=== PATIENT | female | born 1930 | race Caucasian/White ===

== ENCOUNTER 2017-02-23 10:41 | Inpatient (IN) | payer OTHER, MEDICAID ==
[~2017-02-23] VITALS: Ht 149.9 cm; Wt 70.0 kg
[~2017-02-23 10:41] MED LIST: ACT30 PO; ADALAT CC30 MG PO; ASPIR 8181 MG PO; GLUCOTROL10 MG PO; METFORMIN ER500 M1 PO; MICARDIS40 MG PO; SIMVASTATIN40 M1 PO
[2017-02-23 11:28] LABS: BASOPHIL % 0.1 % (0-2); PLATELET COUNT 333 x10^3mcL (130-400)
[2017-02-23] MEDS ORDERED: DICLOFENAC SODI75 MG PO (11:36)
[2017-02-23] MEDS ORDERED: MICARDIS40 MG PO (11:36)
[2017-02-23] MEDS ORDERED: GOOD SENSE OMEP20 MG PO (11:36)
[2017-02-23] MEDS ORDERED: ACT30 PO (11:37)
[2017-02-23] MEDS ORDERED: FERROUS SULFAT325 M2 PO (11:37)
[2017-02-23] MEDS ORDERED: MECLIZINE HYDRO25 M1 PO (11:38)
[2017-02-23 11:43] LABS: CALCIUM 8.3 mg/dL (8.5-10.1); CARBON DIOXIDE 26.2 mmol/L (21-32); CHLORIDE SERUM 93 mmol/L (98-107); CREATININE SERUM 0.7 mg/dL (0.6-1.0); GLUCOSE SERUM 272 mg/dL (74-106); POTASSIUM SERUM 4.9 mmol/L (3.5-5.1); SODIUM SERUM 128 mmol/L (136-145)
[2017-02-23 11:44] LABS: RED CELL DISTRIBUTION WIDTH 16.2 % (11.5-14.5)
[2017-02-23 11:50] LABS: ALKALINE PHOSPHATASE 81 U/L (46-116); ALT/SGPT 40 U/L (14-59); AST/SGOT 69 U/L (15-37); BILIRUBIN TOTAL 0.4 mg/dL (0.20-1.00); LIPASE 179 IU/L (73-393); TOTAL PROTEIN, SERUM 7.5 g/dL (6.4-8.2)
[2017-02-23 15:37] VITALS: BP 139/91
[2017-02-23 15:40] LABS: MAGNESIUM 1.7 mg/dL (1.8-2.4)
[2017-02-23 15:43] LABS: CHOLESTEROL/HDL RATIO 7.9
[2017-02-23 15:50] LABS: FREE T4 1.72 ng/dL (0.76-1.46); FREE THYROXINE INDEX 3.1 ug/dL (1.4-4.5); T4(THYROXINE) 9.5 ug/dL (4.7-13.3)
[2017-02-23 15:54] LABS: T3 TOTAL 0.85 ng/mL
[2017-02-23 15:57] VITALS: BP 148/77
[2017-02-23 16:04] VITALS: Ht 149.9 cm; Wt 70.0 kg
[2017-02-23 16:11] LABS: PHOSPHOROUS 3.3 mg/dL (2.5-4.9)
[2017-02-23 17:35] VITALS: BP 157/86
[2017-02-23 19:30] LABS: UA SPECIFIC GRAVITY <=1.005 (1.005-1.035); microscopic required? YES; urine erythrocyte TRACE (NEGATIVE)
[2017-02-23 20:04] LABS: AMPHETAMINE QUAL UR NONE DETECTED (NEG <=1000)
[2017-02-23 21:43] VITALS: BP 139/73
[2017-02-24 05:44] VITALS: BP 126/69
[2017-02-24 07:05] LABS: BASOPHIL % 0.4 % (0-2); PLATELET COUNT 314 x10^3mcL (130-400)
[2017-02-24 07:24] LABS: RED CELL DISTRIBUTION WIDTH 16.1 % (11.5-14.5)
[2017-02-24 07:26] LABS: CALCIUM 7.9 mg/dL (8.5-10.1); CARBON DIOXIDE 23.1 mmol/L (21-32); CHLORIDE SERUM 101 mmol/L (98-107); CREATININE SERUM 0.5 mg/dL (0.6-1.0); GLUCOSE SERUM 166 mg/dL (74-106); MAGNESIUM 1.7 mg/dL (1.8-2.4); PHOSPHOROUS 3.4 mg/dL (2.5-4.9); POTASSIUM SERUM 3.9 mmol/L (3.5-5.1); SODIUM SERUM 132 mmol/L (136-145)
[2017-02-24 09:24] VITALS: BP 138/71
[2017-02-24 15:02] VITALS: BP 135/78
[2017-02-24 15:55] VITALS: BP 134/86
[2017-02-24 17:19] LABS: BASOPHIL % 0.4 % (0-2); PLATELET COUNT 316 x10^3mcL (130-400); RED CELL DISTRIBUTION WIDTH 16.8 % (11.5-14.5)
[2017-02-24 17:36] VITALS: BP 140/67
[2017-02-24 22:04] VITALS: BP 144/69
[2017-02-25 06:17] LABS: CARBON DIOXIDE 21.8 mmol/L (21-32); CHLORIDE SERUM 100 mmol/L (98-107); CREATININE SERUM 0.4 mg/dL (0.6-1.0); GLUCOSE SERUM 165 mg/dL (74-106); POTASSIUM SERUM 3.4 mmol/L (3.5-5.1); SODIUM SERUM 132 mmol/L (136-145)
[2017-02-25 06:46] LABS: BASOPHIL % 0.3 % (0-2); PLATELET COUNT 315 x10^3mcL (130-400)
[2017-02-25 06:51] LABS: RED CELL DISTRIBUTION WIDTH 16.3 % (11.5-14.5)
[2017-02-25 06:53] VITALS: BP 154/88
[2017-02-25 07:50] VITALS: BP 136/74
[2017-02-25 17:23] VITALS: BP 102/55
[2017-02-25 20:42] VITALS: BP 107/60
[2017-02-26 04:08] LABS: BASOPHIL % 0.4 % (0-2); PLATELET COUNT 336 x10^3mcL (130-400); RED CELL DISTRIBUTION WIDTH 16.8 % (11.5-14.5)
[2017-02-26 04:20] LABS: CALCIUM 8.4 mg/dL (8.5-10.1); CARBON DIOXIDE 23.8 mmol/L (21-32); CHLORIDE SERUM 101 mmol/L (98-107); CREATININE SERUM 0.6 mg/dL (0.6-1.0); GLUCOSE SERUM 215 mg/dL (74-106); POTASSIUM SERUM 3.5 mmol/L (3.5-5.1); SODIUM SERUM 134 mmol/L (136-145)
[2017-02-26 05:27] VITALS: BP 116/64
[2017-02-26 09:39] VITALS: BP 118/59
[2017-02-26 16:42] VITALS: BP 123/65
[2017-02-26 22:24] VITALS: BP 116/72
[2017-02-27 06:18] VITALS: BP 124/62
[2017-02-27 06:19] LABS: BASOPHIL % 0.1 % (0-2); PLATELET COUNT 327 x10^3mcL (130-400)
[2017-02-27 06:35] LABS: CALCIUM 8.3 mg/dL (8.5-10.1); CARBON DIOXIDE 19.9 mmol/L (21-32); CHLORIDE SERUM 102 mmol/L (98-107); CREATININE SERUM 0.6 mg/dL (0.6-1.0); GLUCOSE SERUM 216 mg/dL (74-106); MAGNESIUM 1.7 mg/dL (1.8-2.4); PHOSPHOROUS 3.7 mg/dL (2.5-4.9); POTASSIUM SERUM 3.7 mmol/L (3.5-5.1); SODIUM SERUM 134 mmol/L (136-145)
[2017-02-27 06:47] LABS: RED CELL DISTRIBUTION WIDTH 16.3 % (11.5-14.5)
[2017-02-27 09:41] VITALS: BP 114/63
[2017-02-27 09:54] VITALS: BP 97/57
[2017-02-27 13:17] VITALS: BP 123/57
[2017-02-27] MEDS ORDERED: XARELTO15 M1 PO ×2 (16:33→18:58)
[2017-02-27 17:48] VITALS: BP 102/42
[2017-02-27 18:04] VITALS: BP 102/42
== END 2017-02-27 19:56 | disposition home or self-care (01) | DRG 840 ==
LOC: ED 10:41 → DU 14:27
PROVIDERS: Emergency Medicine; Family Medicine; Internal Medicine Gastroenterology; ADMIT Family Medicine
PROC: 0DB68ZZ Excision of Stomach, Via Natural or Artificial Opening Endoscopic (ICD-10-PCS; principal; 2017-02-26 12:30)
PROC: 0DBL8ZX Excision of Transverse Colon, Via Natural or Artificial Opening Endoscopic, Diagnostic (ICD-10-PCS; 2017-02-26 12:30)
DX: C77.2 Secondary and unspecified malignant neoplasm of intra-abdominal lymph nodes (principal); I26.99 Other pulmonary embolism without acute cor pulmonale; E87.1 Hypo-osmolality and hyponatremia; E44.0 Moderate protein-calorie malnutrition; C18.4 Malignant neoplasm of transverse colon; C79.89 Secondary malignant neoplasm of other specified sites; D68.69 Other thrombophilia; E11.51 Type 2 diabetes mellitus with diabetic peripheral angiopathy without gangrene; E11.65 Type 2 diabetes mellitus with hyperglycemia; E78.5 Hyperlipidemia, unspecified; D64.9 Anemia, unspecified; E83.42 Hypomagnesemia; Z79.84 Long term (current) use of oral hypoglycemic drugs; I10 Essential (primary) hypertension; Z68.31 Body mass index [BMI] 31.0-31.9, adult
CPT/HCPCS: 36600; 43235; 45378; 80307; 82962; 83880; 84439; 94150; C9113; J1200; J1610; J1644; J1940; J2250; J2310; J3010; J3475; J3490; J7030; J7620; J7626; J8597; Q0092; Q9966; Q9967

== ENCOUNTER 2017-05-07 10:27 | Emergency (ER) | payer OTHER ==
[~2017-05-07 10:27] MED LIST changes: +DICLOFENAC SODI75 MG PO; +FERROUS SULFAT325 M2 PO; +GOOD SENSE OMEP20 MG PO; +MECLIZINE HYDRO25 M1 PO; +XARELTO15 M1 PO
[2017-05-07 10:46] VITALS: BP 132/76
== END 2017-05-07 12:50 | disposition home or self-care (01) ==
LOC: ED 10:27
DX: R21 Rash and other nonspecific skin eruption (principal); L29.9 Pruritus, unspecified; E78.5 Hyperlipidemia, unspecified; K21.9 Gastro-esophageal reflux disease without esophagitis; I10 Essential (primary) hypertension; E11.9 Type 2 diabetes mellitus without complications

== ENCOUNTER 2017-05-10 09:58 | Inpatient (IN) | payer OTHER ==
[~2017-05-10] VITALS: Ht 160 cm; Wt 66.2 kg
[2017-05-10 10:39] LABS: BASOPHIL % 0.3 % (0-2)
[2017-05-10 10:55] LABS: ALKALINE PHOSPHATASE 67 U/L (46-116); ALT/SGPT 17 U/L (14-59); AMYLASE 69 U/L (25-115); AST/SGOT 34 U/L (15-37); BILIRUBIN TOTAL 0.2 mg/dL (0.20-1.00); CALCIUM 8.3 mg/dL (8.5-10.1); CARBON DIOXIDE 25.9 mmol/L (21-32); CHLORIDE SERUM 94 mmol/L (98-107); CHOLESTEROL 147 mg/dL (<200); CREATININE SERUM 0.7 mg/dL (0.6-1.0); GLUCOSE SERUM 268 mg/dL (74-106); LIPASE 230 IU/L (73-393); T4(THYROXINE) 8.1 ug/dL (4.7-13.3); TOTAL PROTEIN, SERUM 7.5 g/dL (6.4-8.2)
[2017-05-10 10:57] LABS: ALBUMIN 2.7 g/dL (3.4-5.0); HDL CHOLESTEROL 20 mg/dL (40-60); POTASSIUM SERUM 5.8 mmol/L (3.5-5.1); SODIUM SERUM 124 mmol/L (136-145)
[2017-05-10 10:58] LABS: PLATELET COUNT 489 x10^3mcL (130-400); RED CELL DISTRIBUTION WIDTH 18.1 % (11.5-14.5)
[2017-05-10] MEDS ORDERED: XARELTO10 M1 PO (14:37)
[2017-05-10 15:35] LABS: T3 TOTAL 0.78 ng/mL
[2017-05-10 15:43] LABS: FREE T4 1.47 ng/dL (0.76-1.46); FREE THYROXINE INDEX 3.3 ug/dL (1.4-4.5); T4(THYROXINE) 9.4 ug/dL (4.7-13.3)
[2017-05-10 19:18] LABS: CALCIUM 8.2 mg/dL (8.5-10.1); CARBON DIOXIDE 23.9 mmol/L (21-32); CHLORIDE SERUM 93 mmol/L (98-107); GLUCOSE SERUM 387 mg/dL (74-106); POTASSIUM SERUM 5.1 mmol/L (3.5-5.1)
[2017-05-10 19:26] LABS: SODIUM SERUM 122 mmol/L (136-145)
[2017-05-10 19:41] VITALS: BP 134/77
[2017-05-10 22:36] VITALS: BP 116/63
[2017-05-11] MEDS ORDERED: TRAMADOL HCL50 MG PO (00:40)
[2017-05-11] MEDS ORDERED: OMEPRAZOLE20 M4 PO (00:41)
[2017-05-11 06:33] VITALS: BP 116/62
[2017-05-11 06:50] LABS: microscopic required? NO
[2017-05-11 07:13] LABS: BASOPHIL % 0 % (0-2); PLATELET COUNT 447 x10^3mcL (130-400); RED CELL DISTRIBUTION WIDTH 17.9 % (11.5-14.5)
[2017-05-11 07:27] LABS: CALCIUM 8.2 mg/dL (8.5-10.1); CARBON DIOXIDE 23.2 mmol/L (21-32); CHLORIDE SERUM 100 mmol/L (98-107); CREATININE SERUM 0.5 mg/dL (0.6-1.0); GLUCOSE SERUM 120 mg/dL (74-106); MAGNESIUM 1.7 mg/dL (1.8-2.4); PHOSPHOROUS 3.5 mg/dL (2.5-4.9); POTASSIUM SERUM 3.5 mmol/L (3.5-5.1); SODIUM SERUM 132 mmol/L (136-145)
[2017-05-11 07:57] LABS: UA SPECIFIC GRAVITY <=1.005 (1.005-1.035); urine erythrocyte NEGATIVE (NEGATIVE)
[2017-05-11 08:10] LABS: AMPHETAMINE QUAL UR NONE DETECTED (NEG <=1000)
[2017-05-11 09:55] VITALS: Ht 160 cm; Wt 66.2 kg
[2017-05-11 10:00] VITALS: BP 107/53
[2017-05-11 14:00] VITALS: BP 114/58
[2017-05-11 14:45] LABS: BASOPHIL % 0.1 % (0-2)
[2017-05-11 14:47] LABS: PLATELET COUNT 476 x10^3mcL (130-400); RED CELL DISTRIBUTION WIDTH 17.7 % (11.5-14.5)
[2017-05-11] MEDS ORDERED: DESONIDE15 GM TP (17:59)
[2017-05-11] MEDS ORDERED: KEN10 TOP (17:59)
[2017-05-11 18:00] VITALS: BP 114/58
== END 2017-05-11 19:58 | disposition home or self-care (01) | DRG 606 ==
LOC: ED 09:58 → DU 14:29
PROVIDERS: Emergency Medicine; ADMIT Family Medicine
DX: L21.9 Seborrheic dermatitis, unspecified (principal); E43 Unspecified severe protein-calorie malnutrition; E87.1 Hypo-osmolality and hyponatremia; E11.51 Type 2 diabetes mellitus with diabetic peripheral angiopathy without gangrene; E11.65 Type 2 diabetes mellitus with hyperglycemia; K21.9 Gastro-esophageal reflux disease without esophagitis; D64.9 Anemia, unspecified; E78.5 Hyperlipidemia, unspecified; Z79.82 Long term (current) use of aspirin; Z68.25 Body mass index [BMI] 25.0-25.9, adult; Z79.84 Long term (current) use of oral hypoglycemic drugs
CPT/HCPCS: 82962; 83880; 84439; J1200; J1750; J2916; J2930; J7030; J8597

== ENCOUNTER 2017-06-18 15:10 | Inpatient (IN) | payer OTHER ==
[~2017-06-18] VITALS: Ht 165.1 cm; Wt 66.7 kg
[~2017-06-18 15:10] MED LIST changes: +DESONIDE15 GM TP; +KEN10 TOP; +OMEPRAZOLE20 M4 PO; +TRAMADOL HCL50 MG PO; +XARELTO10 M1 PO
--- NOTE | 2017-06-18 15:17 | NUR ---
PT AWAKE, NO SIGNS OF RESP DISTRESS, +NAUSEA, NO ACTIVE VOMITING ON ARRIVAL. DAUGHTER STATES VOMITING X1 WEEK, NO BM X3 DAYS. [id number] ON ARRIVAL.
--- NOTE | 2017-06-18 18:09 | NUR ---
PT C/O NAUSEA X 1 WK, VOMITING SINCE THIS AM, AND CONSTIPATION X 3 DAYS. PT REPORTS TAKING ZOFRAN PRIOR TO ED ARRIVAL AND HAS VOMITED X 2 AFTER TAKING MED. PT ALSO REPORTS TAKING TRAMADOL FOR GENERALIZED PAIN. PT HX OF COLON CANCER AND STATES CURRENTLY NOT RECEIVING TX. PER SHABANA, CANCER IS TOO ADVANCE AT THIS POINT. PT ALERT AND AWAKE WITH EVEN AND UNLABORED BREATHING. NO DISTRESS NOTED AT THIS TIME. PT TALKING TO DAUGHTER AT BEDSIDE, WAITING TO BE SEEN BY ER MD.
--- NOTE | 2017-06-18 18:44 | NUR ---
PT ALERT AND AWAKE TALKING TO DAUGHTER AT BEDSIDE. NO DISTRESS NOTED AT THIS TIME.
--- NOTE | 2017-06-18 19:05 | NUR ---
DR HAWTHORNE AT BEDSIDE FOR MSE.
--- NOTE | 2017-06-18 19:12 | NUR ---
CHANGE OF SHIFT REPORT GIVEN TO JOSE PULIDO TO CONTINUE CARE.
[2017-06-18 19:41] LABS: BASOPHIL % 0.1 % (0-2)
[2017-06-18 19:42] LABS: PLATELET COUNT 474 x10^3mcL (130-400); RED CELL DISTRIBUTION WIDTH 19.8 % (11.5-14.5)
[2017-06-18 19:52] LABS: ALKALINE PHOSPHATASE 85 U/L (46-116); ALT/SGPT 24 U/L (14-59); AST/SGOT 48 U/L (15-37); BILIRUBIN TOTAL 0.3 mg/dL (0.20-1.00); CALCIUM 8.3 mg/dL (8.5-10.1); CARBON DIOXIDE 25.2 mmol/L (21-32); CHLORIDE SERUM 91 mmol/L (98-107); CREATININE SERUM 0.6 mg/dL (0.6-1.0); GLUCOSE SERUM 285 mg/dL (74-106); POTASSIUM SERUM 3.8 mmol/L (3.5-5.1); TOTAL PROTEIN, SERUM 7.2 g/dL (6.4-8.2)
[2017-06-18 19:54] LABS: ALBUMIN 2.4 g/dL (3.4-5.0)
[2017-06-18 19:55] LABS: SODIUM SERUM 122 mmol/L (136-145)
[2017-06-18 21:22] LABS: UA SPECIFIC GRAVITY <=1.005 (1.005-1.035); microscopic required? YES; urine erythrocyte NEGATIVE (NEGATIVE)
[2017-06-18 22:36] LABS: MAGNESIUM 1.8 mg/dL (1.8-2.4); PHOSPHOROUS 3.5 mg/dL (2.5-4.9)
[2017-06-18 22:41] LABS: CHOLESTEROL/HDL RATIO 10.2; T3 TOTAL 1.06 ng/mL
[2017-06-18 22:52] LABS: FREE T4 1.66 ng/dL (0.76-1.46); FREE THYROXINE INDEX 3.3 ug/dL (1.4-4.5); T4(THYROXINE) 9.2 ug/dL (4.7-13.3)
--- NOTE | 2017-06-19 00:01 | NUR ---
PT LAYING IN BED, IN POSITION OF COMFORT. RESPIRATIONS EVEN AND UNLABORED. NO ACUTE DISTRESS NOTED. BED IN LOW POSITION. CALL LIGHT WITHIN REACH.
--- NOTE | 2017-06-19 00:22 | NUR ---
REPORT GIVEN TO CRISTINA GARCIA.
[2017-06-19 01:17] VITALS: BP 153/75
--- NOTE | 2017-06-19 01:24 | NUR ---
RECEIVED PT FROM ED VIA KIMBERLY. ORIENTED PT TO ROOM AND SURRONDINGS. IV NOTED TO RAC PATENT AND INTACT. TELE 19 PLACED ON PT READING NSR. INSTRUCTED PT ON THE USE OF CALL LIGHT FOR ASSISTANCE. ENDORSED PT TO PRIMARY NURSE HENRY
--- NOTE | 2017-06-19 01:30 | NUR ---
RECEIVED PT FROM JOSE LEON. PT AOX4. TELE #19, NSR, HR 87. DENIES CP/PRESSURE. PULSES PRESENT, NO EDEMA NOTED. LUNG SOUNDS CLEAR, ON RA. DENIES SOB/DIFFICULTY BREATHING. BOWEL SOUNDS ACTIVE. VOIDS FREELY. GENERALIZED WEAKNESS. AMBULATORY WITH ASSISTANCE. USES BSC. SKIN INTACT. IV IN RAC, INTACT AND PATENT. BED IN LOWEST POSITION. CALL LIGHT WITHIN REACH. WILL CONTINUE TO MONITOR.
--- NOTE | 2017-06-19 02:58 | NUR ---
PT RESTING IN BED. RR EVEN AND UNLABORED. NO ACUTE DISTRESS NOTED. BED IN LOWEST POSITION. CALL LIGHT WITHIN REACH. WILL CONTINUE TO MONITOR.
[2017-06-19] MEDS ORDERED: HYDRALAZINE HCL25 MG PO (03:52)
[2017-06-19] MEDS ORDERED: OMEPRAZOLE40 M1 PO (03:53)
[2017-06-19] MEDS ORDERED: OMEPRAZOLE40 M1 (03:53)
[2017-06-19] MEDS ORDERED: LISINOPRIL40 MG PO (03:54)
[2017-06-19] MEDS ORDERED: FUROSEMIDE40 MG PO (03:54)
[2017-06-19] MEDS ORDERED: LIPI20 PO (03:54)
[2017-06-19] MEDS ORDERED: AMLODIPINE BESY10 M2 PO (03:55)
[2017-06-19] MEDS ORDERED: NEU300 PO (03:56)
--- NOTE | 2017-06-19 05:36 | NUR ---
PT BLOOD SUGAR 224, REFUSED INSULIN. PT STATED LAST TIME SHE WAS HERE SHE WAS GIVEN INSULIN AND HER BS DROPPED SO MUCH SHE ALMOST . DR. BLANCHARD NOTIFIED.
[2017-06-19 06:05] VITALS: BP 145/77
--- NOTE | 2017-06-19 06:41 | NUR ---
PT HAD MULTIPLE BM THROUGH THE NIGHT. STATES SHE THINKS ITS DUE TO THE MIRALAX HER HOME MAKES HER TAKE.
--- NOTE | 2017-06-19 06:42 | NUR ---
PT HAD LARGE BM AFTER SUPPOSITORY WAS INSERTED. PT REPORTED IT WAS SOFT AND LARGE.
[2017-06-19 06:45] LABS: CALCIUM 7.9 mg/dL (8.5-10.1); CARBON DIOXIDE 24.6 mmol/L (21-32); CHLORIDE SERUM 97 mmol/L (98-107); CREATININE SERUM 0.5 mg/dL (0.6-1.0); GLUCOSE SERUM 199 mg/dL (74-106); POTASSIUM SERUM 4.4 mmol/L (3.5-5.1); SODIUM SERUM 129 mmol/L (136-145)
--- NOTE | 2017-06-19 07:00 | NUR ---
PT IS LAYING IN BED WITH DAUGHTER BY HER SIDE. PT A/O X4 YAKUT SPK. TELE 19 NSR. HR 81. PT IS BREATHING EVEN AND UNLABORED. PT DENIES ANY ABD PAIN AT THIS TIME. IV TO RAC INFUSING AT 100 ML/HR. CALL LIGHT IN REACH. BED IN LOW POSITION. WILL CONTINUE PLAN OF CARE.
--- NOTE | 2017-06-19 07:22 | NUR ---
CANCELLATION REQUESTED FOR ECHOCARDIOGRAM
[2017-06-19 07:45] LABS: BASOPHIL % 0.2 % (0-2)
[2017-06-19 07:46] LABS: PLATELET COUNT 454 x10^3mcL (130-400); RED CELL DISTRIBUTION WIDTH 19.9 % (11.5-14.5)
[2017-06-19 10:00] VITALS: BP 124/58
--- NOTE | 2017-06-19 11:21 | NUR ---
Initial Nutrition Assessment Dx: Abd Pain, Colon CA PMHx: DM, HTN, gastric and colonic CA (02/2017) PSHx: None Labs: Na 129 L, BG 199 H, BUN 4 L, Cr 0.5 L, H/H 8.5/27 L; (06/18) ALB 2.4 L, AST 48 H, LDL 151 H, A1C 7.2 H Meds: D50, ferrous sulfate, humulin R, lactinex, morphine, oscal with vitamin D, Prilosec, NS IV, theragran, zofran Current Diet Order: NPO except meds (x1 day) (abd pain) Ht: 65", 5' 5". Wt: 147 lb, 67 kg. BMI: 24.5 kg/m2 (Normal) IBW: 125 lb, 57 kg. %IBW: 118%. UBW: Pt unable to recall. Wt Hx: (02/24/17) 155 lb, 70 kg; Pt reports weight at 141 lb, 64 kg on 06/11. Age: 86 Y/O F Food Allergies: None Skin: Intact. [place] 19. Edema: None GI: Abd slightly distended, tender. Active bowel sounds. Last BM 06/19. Large, soft BM. Pt found with abd pain secondary to constipation vs gastric and colonic CA per doctor's notes. Per Bed Huddle reports, concern for bowel obstruction, pt does not want surgery, pt is agreeable with hospice. Pt is Maltese-speaking only, daughter is Mongolian-speaking. Pot Fluxer assisted in translation. Noted visitor at bedside. Pt reported not remembering height accurately, appears to be 65", stated that no nausea/vomiting/diarrhea/constipation noted. Pt also stated that she does not eat meat, no fish, likes vegetables, cheese, milk, eggs. RD noted, no signs and symptoms of malnutrition noted. Spoke with Dr. Singh, stated pt has a partial obstruction, not advancing diet yet, waiting for a surgeon to talk to pt first. Problem with: N: None. V: None. D: None. C: None. Problems with: Chewing: None. Pt has dentures, but chewing well, no missing teeth. Swallowing: None. Recent Weight Change: -8 lb. % Weight Change: 5.2% weight loss within 3 months - Significant Vitamin/Supplement use: Ensure 1-2/day; No preference on flavor Diet at Home: Regular; 2 meals/day prepared by pt, likes to eat Russian breads like Bimbo and beans with rice Physical Activity: Walks Education: Noted pt was provided nutrition education on DM and low sodium diet on 02/24/17, accepted handouts and receptive to education. No further education indicated at this time. Noted pt agreeable with hospice. Estimated Nutritional Needs Based CBW 147 lb, 67 kg. Energy: 9779-1150 kcal/day (30-35 kcal/kg for Gastric and Colonic CA) Protein: 67-101 gm/day (1-1.5 gm/kg for Gastric and Colonic CA) Fluids: 2010 ml/day (30 ml/kg for Maintenance) or per doctor Nutrition Diagnosis 1. Increase nutritional needs related to increase metabolic demands as evidenced by pt with gastric and colonic CA 2. Unintentional weight loss related to gastric and colonic CA as evidenced by 5.2% weight loss within 3 months, considered significant Intervention 1. Consider advance diet per doctor if/when medically appropriate. 2. Consider advance as tolerated to CCHO-60 gm diet, Boost Glucose Control TID (750 kcal, 42 gm protein) if/when medically. Monitor/Evaluate Goal: NPO <5-7 days; Diet advancement Monitor: NPO status, diet advancement, labs, skin integrity, GI function, weights F/U in 2-3 days as HIGH risk (06/21-06/22)
--- NOTE | 2017-06-19 13:09 | NUR ---
PER DOCTORS ORDERS INSURTED ENEMA . PT TOLERATED WELL.
[2017-06-19 14:32] VITALS: Ht 165.1 cm; Wt 66.7 kg
[2017-06-19 14:38] VITALS: BP 123/60
[2017-06-19 18:25] VITALS: BP 136/72
--- NOTE | 2017-06-19 18:58 | NUR ---
PT IS RESTING IN BED TALKING ON THE CELL WITH A FAMILY MEMBER. PT DAUGHTER IS BY HER SIDE. PT WAS ABLE TO HAVE A BM PT STATED IT WAS VERY SMALL. PT BREATHING EVEN AND UNLABORED.IV TO RAC AT 100ML/HR. INFUSING WELL. NO SWELLING OR REDNESS NOTED. DENIES ANY ABD PAIN AT THIS TIME. CALL LIGHT IN REACH. BED IN LOW POSITION. WILL ENDORSE PT TO INCOMING NURSE.
--- NOTE | 2017-06-19 19:45 | NUR ---
RECEIVED PT FROM PREVIOUS SHIFT. PT A/OX4. DENIES PAIN. DENIES SOB ON RA. IV PATENT AND INFUSING WELL WITH NO S/S OF INFILTRATION. FAMILY AT BEDSIDE. CALL LIGHT WITHIN REACH, BED IN LOW POSITION. WILL CONTINUE TO MONITOR.
[2017-06-19 21:24] VITALS: BP 145/84
--- NOTE | 2017-06-20 00:15 | NUR ---
PT RESTING AT THIS TIME IN NO ACUTE DISTRESS. RR EVEN AND UNLABORED. IV PATENT AND INFUSING WELL WITH NO S/S OF INFILTRATION. WILL CONTINUE TO MONITOR.
[2017-06-20 05:27] VITALS: BP 126/86
--- NOTE | 2017-06-20 08:00 | NUR ---
AAO TIMES 4. DTR AT BEDSIDE, SUPPORTIVE AND CARING. TELE # 19 SR. VS'S STABLE. NO SOB. BS'S ACTIVE TIMES 4. HUTCHISON MODERATE STRENGTH. USING BSC. IV SITE CDI. COOPERATIVE. MEDICAL ROUNDS OCCURED AT [address] FRITZ AND THE MEDICINE TEAM. THE PLAN TODAY IS TO HAVE A HOSPICE EVAL AND WE WILL SEE WHAT HOSPICE SAYS.
[2017-06-20 10:27] VITALS: BP 131/71
[2017-06-20] MEDS ORDERED: SENNA8.6 M2 PO (14:29)
[2017-06-20] MEDS ORDERED: BISACODYL10 MG RC (14:30)
[2017-06-20] MEDS ORDERED: BACTRIM DS1 TAB PO (14:49)
[2017-06-20 15:32] VITALS: BP 131/71
--- NOTE | 2017-06-20 16:26 | NUR ---
DC'D PT'S SL ANGIO INTACT. GAVE PT AND DTR DISCHARGE INSTRUCTIONS. [facility] IS FOLLOWING UP WITH HER CASE WHEN SHE GETS HOME. PT AND DTR VERALIZED "I UNDERSTAND" TO ALL INSTRUCTIONS.
== END 2017-06-20 17:36 | disposition hospice, home (50) | DRG 374 ==
LOC: ED 15:10 → DU 21:43
PROVIDERS: Emergency Medicine; ADMIT Family Medicine
DX: C18.4 Malignant neoplasm of transverse colon (principal); E43 Unspecified severe protein-calorie malnutrition; E87.1 Hypo-osmolality and hyponatremia; C16.9 Malignant neoplasm of stomach, unspecified; N39.0 Urinary tract infection, site not specified; D68.69 Other thrombophilia; K59.00 Constipation, unspecified; E11.51 Type 2 diabetes mellitus with diabetic peripheral angiopathy without gangrene; D63.0 Anemia in neoplastic disease; E83.51 Hypocalcemia; I45.10 Unspecified right bundle-branch block; I10 Essential (primary) hypertension; E78.5 Hyperlipidemia, unspecified; Z66 Do not resuscitate; Z68.24 Body mass index [BMI] 24.0-24.9, adult; Z79.84 Long term (current) use of oral hypoglycemic drugs; E87.8 Other disorders of electrolyte and fluid balance, not elsewhere classified
CPT/HCPCS: 82962; 83880; 84439; J0696; J2270; J2405; J7030

== ENCOUNTER 2017-11-06 22:36 | Inpatient (IN) | payer OTHER ==
[~2017-11-06] VITALS: Ht 157.5 cm; Wt 60.8 kg
[~2017-11-06 22:36] MED LIST changes: +AMLODIPINE BESY10 M2 PO; +BACTRIM DS1 TAB PO; +BISACODYL10 MG RC; +FUROSEMIDE40 MG PO; +HYDRALAZINE HCL25 MG PO; +LIPI20 PO; +LISINOPRIL40 MG PO; +NEU300 PO; +OMEPRAZOLE40 M1; +OMEPRAZOLE40 M1 PO; +SENNA8.6 M2 PO
[2017-11-07 00:25] LABS: PLATELET COUNT 374 x10^3mcL (130-400)
[2017-11-07 00:26] LABS: BASOPHIL % 0 % (0-2); RED CELL DISTRIBUTION WIDTH 23.3 % (11.5-14.5)
[2017-11-07 00:43] LABS: CALCIUM 8.1 mg/dL (8.5-10.1); CARBON DIOXIDE 26.5 mmol/L (21-32); CHLORIDE SERUM 95 mmol/L (98-107); CREATININE SERUM 0.4 mg/dL (0.6-1.0); GLUCOSE SERUM 206 mg/dL (74-106); POTASSIUM SERUM 4.4 mmol/L (3.5-5.1); SODIUM SERUM 127 mmol/L (136-145)
[2017-11-07 00:48] LABS: ALKALINE PHOSPHATASE 92 U/L (46-116); ALT/SGPT 24 U/L (14-59); AST/SGOT 67 U/L (15-37); BILIRUBIN TOTAL 0.3 mg/dL (0.20-1.00); LIPASE 40 IU/L (73-393); TOTAL PROTEIN, SERUM 7.7 g/dL (6.4-8.2)
[2017-11-07 01:58] LABS: rbc morphology (normal/abnorm) ABNORMAL (NORMAL); target cell (codocyte) 1+
[2017-11-07 02:58] VITALS: BP 128/76
[2017-11-07 06:13] VITALS: BP 127/60
[2017-11-07 06:54] LABS: T3 TOTAL 0.83 ng/mL
[2017-11-07 07:02] LABS: MAGNESIUM 1.9 mg/dL (1.8-2.4); PHOSPHOROUS 3.8 mg/dL (2.5-4.9)
[2017-11-07 07:03] LABS: CHOLESTEROL/HDL RATIO 12.3
[2017-11-07 07:08] LABS: FREE T4 1.58 ng/dL (0.76-1.46); FREE THYROXINE INDEX 2.6 ug/dL (1.4-4.5); T4(THYROXINE) 7.1 ug/dL (4.7-13.3)
[2017-11-07 08:40] VITALS: BP 147/85
[2017-11-07 12:12] VITALS: BP 161/78
[2017-11-07 16:34] VITALS: BP 153/100
[2017-11-07 21:39] VITALS: BP 142/86
[2017-11-08 05:40] VITALS: BP 138/68
[2017-11-08 07:13] LABS: PLATELET COUNT 337 x10^3mcL (130-400)
[2017-11-08 07:18] LABS: CALCIUM 8.1 mg/dL (8.5-10.1); CARBON DIOXIDE 25.1 mmol/L (21-32); CHLORIDE SERUM 102 mmol/L (98-107); CREATININE SERUM 0.3 mg/dL (0.6-1.0); GLUCOSE SERUM 113 mg/dL (74-106); MAGNESIUM 1.8 mg/dL (1.8-2.4); PHOSPHOROUS 3.3 mg/dL (2.5-4.9); POTASSIUM SERUM 3.5 mmol/L (3.5-5.1); SODIUM SERUM 134 mmol/L (136-145)
[2017-11-08 07:27] LABS: RED CELL DISTRIBUTION WIDTH 23.2 % (11.5-14.5)
[2017-11-08 07:55] LABS: MONOCYTE 11 % (0-7); SEGMENTED NEUTROPHILS 72 % (37-75); rbc morphology (normal/abnorm) ABNORMAL (NORMAL); target cell (codocyte) 1+
[2017-11-08 09:15] VITALS: BP 139/80
[2017-11-08 12:29] VITALS: BP 126/69
[2017-11-08 17:45] VITALS: BP 128/69
[2017-11-08 21:51] VITALS: BP 122/59
[2017-11-09 05:53] VITALS: BP 129/72
[2017-11-09 07:33] LABS: PLATELET COUNT 308 x10^3mcL (130-400)
[2017-11-09 07:42] LABS: RED CELL DISTRIBUTION WIDTH 23.8 % (11.5-14.5)
[2017-11-09 07:48] LABS: CALCIUM 8.2 mg/dL (8.5-10.1); CARBON DIOXIDE 25.2 mmol/L (21-32); CHLORIDE SERUM 103 mmol/L (98-107); CREATININE SERUM 0.4 mg/dL (0.6-1.0); GLUCOSE SERUM 107 mg/dL (74-106); POTASSIUM SERUM 3.7 mmol/L (3.5-5.1); SODIUM SERUM 134 mmol/L (136-145)
[2017-11-09 09:05] VITALS: BP 139/76
[2017-11-09 10:48] LABS: BAND NEUTROPHIL 0 % (0-10); BASOPHIL 0 % (0-2); MONOCYTE 10 % (0-7); PLATELET MORPHOLOGY PLATELETS NORMAL; SEGMENTED NEUTROPHILS 75 % (37-75); rbc morphology (normal/abnorm) ABNORMAL (NORMAL)
[2017-11-09 10:50] LABS: target cell (codocyte) 1+
[2017-11-09 13:05] VITALS: BP 122/79
[2017-11-09 17:00] VITALS: BP 125/68
[2017-11-09 21:03] VITALS: BP 108/53
[2017-11-10 05:33] VITALS: BP 146/75
[2017-11-10 08:30] VITALS: BP 132/68
[2017-11-10] MEDS ORDERED: ZOFRAN ODT4 MG SL (16:44)
[2017-11-10 18:21] VITALS: BP 119/53
[2017-11-10 19:10] VITALS: BP 119/53
== END 2017-11-10 21:28 | DRG 374 ==
LOC: ED 22:36 → DU 11-07 02:00 → MU 11-07 02:00 → DU 11-07 02:57 → MU 11-08 19:07
PROVIDERS: Emergency Medicine; Family Medicine; Internal Medicine Gastroenterology
PROC: 0DH63UZ Insertion of Feeding Device into Stomach, Percutaneous Approach (ICD-10-PCS; principal; 2017-11-08 11:30)
PROC: 0D738ZZ Dilation of Lower Esophagus, Via Natural or Artificial Opening Endoscopic (ICD-10-PCS; 2017-11-08 11:30)
DX: C78.89 Secondary malignant neoplasm of other digestive organs (principal); N17.0 Acute kidney failure with tubular necrosis; E43 Unspecified severe protein-calorie malnutrition; E87.1 Hypo-osmolality and hyponatremia; D68.69 Other thrombophilia; C18.4 Malignant neoplasm of transverse colon; E11.65 Type 2 diabetes mellitus with hyperglycemia; D63.8 Anemia in other chronic diseases classified elsewhere; E87.8 Other disorders of electrolyte and fluid balance, not elsewhere classified; E78.5 Hyperlipidemia, unspecified; Z68.25 Body mass index [BMI] 25.0-25.9, adult
CPT/HCPCS: 43235; 82962; 83880; 84439; 90658; 92610-GN; J1200; J1610; J1940; J2250; J2310; J2405; J2930; J3010; J3490; J7030; J7040; J7042